=== PATIENT | female | born 2000 | race Two or more races ===

== ENCOUNTER → 2025-08-27 10:02 | Outpatient (CLI) | payer OTHER | END | disposition home or self-care (01) | LOC: PRENATAL 10:02 | PROVIDERS: ATTEND Obstetrics & Gynecology Maternal & Fetal Medicine | DX: O44.02 Complete placenta previa NOS or without hemorrhage, second trimester (principal); O36.8120 Decreased fetal movements, second trimester, not applicable or unspecified; Z3A.27 27 weeks gestation of pregnancy ==